=== PATIENT | female | born 1955 ===

== ENCOUNTER 2020-06-22 07:27 | Outpatient (CLI) | payer MEDICARE, SELFPAY ==
--- NOTE | ~2020-06-22 | MM_ITS ---
EXAMINATION: MM screening ambreen BI w nay HISTORY: Screening mammogram TECHNIQUE: Craniocaudal and mediolateral oblique 3-D tomosynthesis images were obtained and synthetic 2-D images were generated. CAD analysis was submitted and interpreted. COMPARISON: No prior mammogram is available for comparison at this institution. BREAST PARENCHYMAL COMPOSITION: FINDINGS: There is a stable 7 mm circumscribed mass of the outer mid to upper right breast, unchanged since 05/06/2009. There are scattered bilateral benign calcifications. There is no evidence of barraza spicious mass, calcification, or architectural distortion to suggest malignancy in either breast. The re has been no suspicious interval change. IMPRESSION: 1. No mammographic evidence of malignancy. 2. Recommend routine screening mammography in one year. BI-RADS Category 2: Benign finding(s). Reviewed, dictated and finalized at location A. [employer]
== END 2020-06-22 07:28 | disposition home or self-care (01) ==
LOC: ANHIMG 07:30
PROVIDERS: PCP Internal Medicine Infectious Disease; Visit Provider Internal Medicine Infectious Disease
DX: Z12.31 Encounter for screening mammogram for malignant neoplasm of breast (principal)
CPT/HCPCS: 77063; 77067

== ENCOUNTER → 2022-11-15 09:14 | Outpatient (CLI) | payer MEDICARE, SELFPAY ==
--- NOTE | ~2022-11-15 | MM_ITS ---
EXAMINATION: MM screening ambreen BI w nay HISTORY: Screening mammogram TECHNIQUE: Craniocaudal and mediolateral oblique 3-D tomosynthesis images were obtained and synthetic 2-D images were generated. CAD analysis was submitted and interpreted. COMPARISON: 06/22/2020 bilateral screening mammogram BREAST PARENCHYMAL COMPOSITION: There are scattered areas of fibroglandular density. FINDINGS: Bilateral benign calcifications. Stable mass in the mid to upper outer right breast. There is no evidence of suspicious mass, calcific ation, or architectural distortion to suggest malignancy in either breast. There has been no suspicio us interval change. IMPRESSION: 1. No mammographic evidence of malignancy. 2. Recommend routine screening mammography in one year. BI-RADS Category 2: Benign finding(s). Reviewed, dictated and finalized at location A.
== END ==
PROVIDERS: PCP Internal Medicine Infectious Disease; Visit Provider Internal Medicine Infectious Disease
DX: Z12.31 Encounter for screening mammogram for malignant neoplasm of breast (principal)
CPT/HCPCS: 77063; 77067

== ENCOUNTER 2024-09-27 13:01 | Outpatient (CLI) | payer MEDICARE, SELFPAY ==
--- NOTE | ~2024-09-27 | MM_ITS ---
EXAMINATION: MM screening ambreen BI w nay HISTORY: Screening mammogram TECHNIQUE: Craniocaudal and mediolateral oblique 3-D tomosynthesis images were obtained and synthetic 2-D images were generated. CAD analysis was submitted and interpreted. COMPARISON: 11/15/2022, 06/22/2020 BREAST PARENCHYMAL COMPOSITION:Not Dense. There are scattered areas of fibroglandular density. FINDINGS: Stable right breast mass. No suspicious mass, calcification, or architectural distortion ar e identified in either breast to suggest malignancy. There has been no suspicious interval change. IMPRESSION: No mammographic evidence of malignancy. Recommend routine screening mammography in one year. BI-RADS Category 2: Benign finding(s). Reviewed, dictated and finalized at location .
== END 2024-09-27 13:02 | disposition home or self-care (01) ==
LOC: MICIMG 13:02
PROVIDERS: PCP Internal Medicine Infectious Disease; Visit Provider Internal Medicine Infectious Disease
DX: Z12.31 Encounter for screening mammogram for malignant neoplasm of breast (principal)
CPT/HCPCS: 77063; 77067